=== PATIENT | male | born 1945 | race African-American/Black ===

== ENCOUNTER 2023-12-29 10:10 | Emergency (ER) | payer OTHER ==
[2023-12-29 10:20] VITALS: BP 120/66; PULSE 70; RESP 17; TEMP 97.3; BMI 30.2
[2023-12-29 11:37] LABS: BASO % 1.3 % (0-2.0); HEMATOCRIT 35.8 % (35.4-49); HEMOGLOBIN 12.6 GM/dL (11.7-16.9); LYMPH % 25.6 % (8-40); MCHC 35.1 g/dl (32.0-35.9); MEAN CELL VOLUME 85.4 fl (80-96); MEAN PLT VOLUME 7.4 fl (7.5-11.1); MONO % 11.8 % (3.8-10.2); NEUT % 58.3 % (42.8-82.8); PLATELET COUNT 222 10^3/uL (134-434); RBC 4.19 M/mm3 (4.00-5.60); RDW 14.3 % (11.9-15.9); WHITE BLOOD COUNT 4.8 K/mm3 (4.0-10.0)
[2023-12-29 11:58] LABS: POTASSIUM 3.4 mmol/L (3.5-5.1)
[2023-12-29 12:00] LABS: ALBUMIN 3.6 g/dl (3.4-5.0); CALCIUM 9.8 mg/dL (8.5-10.1)
[2023-12-29 12:01] LABS: BLOOD UREA NITROGEN 16.1 mg/dL (7-18)
[2023-12-29 12:03] LABS: CREATININE 1.3 mg/dL (0.55-1.3)
[2023-12-29 12:05] LABS: BILIRUBIN,TOTAL 0.7 mg/dL (0.2-1)
[2023-12-29 12:37] LABS: INR 0.98 (0.83-1.09); PROTHROMBIN TIME (PATIENT) 11.4 SEC (9.7-13.0)
[2023-12-29 12:40] LABS: ACTIVATED PTT 30.9 SECONDS (25.2-36.5)
== END 2023-12-29 14:42 | disposition home or self-care (01) ==
LOC: JER 10:10
DX: K92.1 Melena (principal); K59.00 Constipation, unspecified; R42 Dizziness and giddiness; K64.9 Unspecified hemorrhoids
CPT/HCPCS: 36415; 80053; 82272; 85025; 85610; 85730; 86850; 86900; 86901; 93005; 93010; 99284-25

== ENCOUNTER 2024-06-16 17:36 | Observation (INO) | payer OTHER ==
[2024-06-16] MEDS ORDERED: ASPIRIN COATED 81 MG TABLET.EC PO SCH (18:15)
[2024-06-16] MEDS ORDERED: ASPIRIN 81 MG CHEWABLE TABLETS ONE (18:17)
[2024-06-16 18:19] LABS: HEMATOCRIT 38.4 % (35.4-49); HEMOGLOBIN 13.1 GM/dL (11.7-16.9); LYMPH % 28.5 % (8-40); MCH 29.4 pg (25.7-33.7); MCHC 34.1 g/dl (32.0-35.9); MEAN CELL VOLUME 86.2 fl (80-96); MEAN PLT VOLUME 7.1 fl (7.5-11.1); MONO % 12.4 % (3.8-10.2); NEUT % 54.1 % (42.8-82.8); PLATELET COUNT 274 10^3/uL (134-434); RBC 4.46 M/mm3 (4.00-5.60); RDW 15.8 % (11.9-15.9); WHITE BLOOD COUNT 5.6 K/mm3 (4.0-10.0)
[2024-06-16] MEDS: ASPIRIN 81 MG CHEWABLE TABLETS PO ONE ×2 (18:20)
[2024-06-16 18:26] LABS: PROTHROMBIN TIME (PATIENT) 11.5 SEC (9.7-13.0)
[2024-06-16 18:45] LABS: POTASSIUM 3.7 mmol/L (3.5-5.1)
[2024-06-16 18:47] LABS: CALCIUM 9.7 mg/dL (8.5-10.1)
[2024-06-16 18:49] LABS: BLOOD UREA NITROGEN 19.6 mg/dL (7-18)
[2024-06-16 18:51] LABS: CREATININE 1.4 mg/dL (0.55-1.3)
[2024-06-16] MEDS ORDERED: ATORVASTATIN CA 80 MG TABLET (FP) ONE (22:02)
[2024-06-16] MEDS ORDERED: CARVEDILOL 6.25 MG TABLET (FP) ONE (22:05)
[2024-06-16] MEDS: ATORVASTATIN CA 80 MG TABLET (FP) PO SCH (22:14)
[2024-06-16] MEDS: CARVEDILOL 6.25 MG TABLET (FP) PO SCH (22:14)
[2024-06-16 22:29] LABS: PH,URINE 6.5 (5.0-8.0); URINE APPEARANCE CLEAR; URINE BILIRUBIN NEGATIVE (NEGATIVE); URINE COLOR YELLOW; URINE GLUCOSE (UA) 2+ (NEGATIVE); URINE KETONE NEGATIVE (NEGATIVE); URINE LEUK ESTERASE NEGATIVE (NEGATIVE); URINE NITRITE NEGATIVE (NEGATIVE); URINE PROTEIN NEGATIVE (NEGATIVE); URINE UROBILINOGEN 0.2 mg/dL (0.2-1.0)
[2024-06-16] MEDS: INSULIN ASPART SLIDING SCALE (NOVOLOG) 1 VIAL SQ SCH (23:03)
[2024-06-16] MEDS: HEPARIN NA (PORCINE) 5,000 UNITS/ML 1ML VIAL SQ ONE (23:09)
[2024-06-17 05:05] VITALS: BMI 26.5
[2024-06-17] MEDS ORDERED: HEPARIN NA (PORCINE) 5,000 UNITS/ML 1ML VIAL SQ SCH (06:00)
[2024-06-17 07:38] LABS: BASO % 0.7 % (0-2.0); EOS % 3.3 % (0-4.5); HEMATOCRIT 35.7 % (35.4-49); HEMOGLOBIN 12.1 GM/dL (11.7-16.9); LYMPH % 34.6 % (8-40); MCH 29.1 pg (25.7-33.7); MCHC 33.8 g/dl (32.0-35.9); MEAN CELL VOLUME 86.2 fl (80-96); MEAN PLT VOLUME 7.4 fl (7.5-11.1); MONO % 12.2 % (3.8-10.2); NEUT % 49.2 % (42.8-82.8); PLATELET COUNT 237 10^3/uL (134-434); RBC 4.15 M/mm3 (4.00-5.60); RDW 15.5 % (11.9-15.9); WHITE BLOOD COUNT 4.6 K/mm3 (4.0-10.0)
[2024-06-17 07:51] LABS: POTASSIUM 3.6 mmol/L (3.5-5.1)
[2024-06-17 08:10] LABS: ALBUMIN 3.3 g/dl (3.4-5.0); BILIRUBIN,TOTAL 0.5 mg/dL (0.2-1); BLOOD UREA NITROGEN 20.8 mg/dL (7-18); CALCIUM 8.9 mg/dL (8.5-10.1); CREATININE 1.4 mg/dL (0.55-1.3); TOT PROT 6.5 g/dl (6.4-8.2)
[2024-06-17 08:12] LABS: PHOSPHOROUS 3.6 mg/dL (2.5-4.9)
[2024-06-17 08:18] LABS: CHOLESTEROL 139 mg/dL (50-200); LDL CHOLESTEROL (ONLY SJRH) 64 mg/dL (5-100)
[2024-06-17 08:20] LABS: HDL CHOLESTEROL 48 mg/dL (40-60)
[2024-06-17] MEDS ORDERED: HYDROCHLOROTHIAZIDE 12.5 MG CAPSULE (FP) PO SCH (10:00)
[2024-06-17] MEDS: TAMSULOSIN HCL 0.4 MG CAP PO SCH (10:17)
[2024-06-17] MEDS: ENOXAPARIN NA (PORCINE) 40 MG/0.4 ML DISP.SYRIN SQ SCH (10:17)
[2024-06-17] MEDS: LOSARTAN POTASSIUM 50 MG TABLET PO SCH (10:18)
[2024-06-17] MEDS: ASPIRIN COATED 81 MG TABLET.EC PO SCH (10:18)
[2024-06-17] MEDS: busPIRone HCL 5 MG TABLET PO SCH (10:18)
[2024-06-17] MEDS: PRASUGREL HCL 10 MG TAB PO SCH (12:47)
[2024-06-17 14:13] VITALS: RESP 18
[2024-06-17] MEDS: MAGNESIUM HYDROX 2400MG/30ML ORAL SUSPENSION 30 ML CUP PO PRN (17:10)
[2024-06-17 18:13] VITALS: BP 94/56; PULSE 57; TEMP 97.5
== END 2024-06-17 19:16 | disposition home or self-care (01) ==
LOC: JER 17:36 → JERBED 19:57 → UNDOADMOB 19:57 → INTOOBSV 19:57 → JERBED 06-17 01:20 → J4W 06-17 01:20 → JERBED 06-17 09:14
PROVIDERS: ADMIT Internal Medicine; ATTEND Internal Medicine
PROC: 3E023GC Introduction of Other Therapeutic Substance into Muscle, Percutaneous Approach (ICD-10-PCS; principal; 2024-06-17)
DX: I25.119 Atherosclerotic heart disease of native coronary artery with unspecified angina pectoris (principal); I12.9 Hypertensive chronic kidney disease with stage 1 through stage 4 chronic kidney disease, or unspecified chronic kidney disease; E78.5 Hyperlipidemia, unspecified; N18.9 Chronic kidney disease, unspecified; Z95.5 Presence of coronary angioplasty implant and graft; E11.22 Type 2 diabetes mellitus with diabetic chronic kidney disease; N40.0 Benign prostatic hyperplasia without lower urinary tract symptoms; Z87.891 Personal history of nicotine dependence; Z85.46 Personal history of malignant neoplasm of prostate
CPT/HCPCS: 0241U-QW; 36415; 71046-TC-FY; 76775-TC; 80048; 80053; 80061; 81003; 82550; 82962; 83036; 83735; 84100; 84439; 84443; 84484; 85025; 85610; 86850; 86900; 86901; 93005; 93010; 93306-TC; 93308; 96372; 97116-GP; 97161-GP; 99285-25; G0378